=== PATIENT | female | born 1995 | race Caucasian/White ===

== ENCOUNTER 2016-11-21 21:46 | Emergency (ER) | payer BC, OTHER ==
[~2016-11-21] VITALS: Ht 165.1 cm; Wt 61.2 kg
[~2016-11-21 21:46] MED LIST: BIRTH CONTROL PO; CEPH-507 PO
[2016-11-21] MEDS ORDERED: RT-ALBUTEROL/IPRATROPIUM 3 ML (DUONEB) VIAL INH ONE (22:45)
[2016-11-21 22:57] LABS: BASOPHILS % (AUTO) 0 % (0-10); EOSINOPHILS # (AUTO) 0.2 10^3/uL (0.0-0.3); EOSINOPHILS % (AUTO) 2 % (0-10); LYMPHOCYTES % (AUTO) 39 % (12-44); MEAN CORPUSCULAR HEMOGLOBIN 29 PG (25-34); MEAN CORPUSCULAR HGB CONC 34 G/DL (32-36); MEAN CORPUSCULAR VOLUME 87 FL (80-99); MONOCYTES # (AUTO) 0.9 X 10^3 (0.0-1.0); MONOCYTES % (AUTO) 9 % (0-12); NEUTROPHILS # (AUTO) 5.2 X 10^3 (1.8-7.8); NEUTROPHILS % (AUTO) 50 % (42-75); PLATELET COUNT 287 10^3/uL (130-400); RED BLOOD COUNT 4.52 10^6/uL (4.35-5.85); RED CELL DISTRIBUTION WIDTH 12.6 % (10.0-14.5); WHITE BLOOD COUNT 10.3 10^3/uL (4.3-11.0)
[2016-11-21 23:26] LABS: ALANINE AMINOTRANSFERASE 11 U/L (0-55); ALBUMIN 4.2 G/DL (3.2-4.5); ANION GAP 11 MMOL/L (5-14); ASPARTATE AMINO TRANSFERASE 15 U/L (5-34); BILIRUBIN,TOTAL 0.4 MG/DL (0.1-1.0); BLOOD UREA NITROGEN 12 MG/DL (7-18); BUN/CREATININE RATIO 13; CALCIUM 9.1 MG/DL (8.5-10.1); CARBON DIOXIDE 21 MMOL/L (21-32); CHLORIDE 107 MMOL/L (98-107); CREATININE SERUM 0.89 MG/DL (0.60-1.30); GFR ESTIMATED > 60; GLUCOSE 103 MG/DL (70-105); MAGNESIUM 2.6 MG/DL (1.8-2.4); POTASSIUM 3.5 MMOL/L (3.6-5.0); SODIUM 139 MMOL/L (135-145); TOTAL PROTEIN 7.4 G/DL (6.4-8.2)
[2016-11-21] MEDS ORDERED: RX-ALBUTEROL INHALER (VENTOLIN HFA) 18 GM IH STA (23:45)
--- NOTE | 2016-11-21 23:45 | ED Chest Pain ---
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 Nursing Sepsis Screen: No Definite Risk Source: patient, other (friends) Exam Limitations: no limitations History of Present Illness Time seen by provider: 21:50 Initial Comments This 21-year-old young lady presents to the emergency room with complaints of chest pressure and shortness of air. She has associated feelings of weakness and tingling in her face and extremities. Symptoms started while she was lying in bed studying. She has final exams approaching. She has had an ER visit previously for similar symptoms. She thinks she may be having some difficulty with the weather change. She does admit to some problems with anxiety as well. She denies any cough or fever. She did take Buspar today which she believes helped her symptoms. She also has a history of asthma which is presently untreated. Last menstrual period was November 02 and she is not sexually active. She arrives with her cousin. Allergies and Home Medications Allergies Coded Allergies: latex (Verified Allergy, Mild, 10/25/15) No Known Drug Allergies (Unverified , 10/25/15) Uncoded Allergies: CATS (Allergy, Mild, 10/25/15) RED FOOD DYE (Allergy, Mild, 10/25/15) Home Medications Cephalexin 500 Mg Capsule, 500 MG PO TID, #21 Prescribed by: ESTRELLA CAMPOS on 10/25/151933 [ Control] , 1 TAB PO DAILY, (Reported) Review of Systems Constitutional: see HPI EENTM: No Symptoms Reported Respiratory: See HPI Cardiovascular: See HPI Gastrointestinal: No Symptoms Reported Genitourinary: No Symptoms Reported Musculoskeletal: no symptoms reported Skin: no symptoms reported Psychiatric/Neurological: See HPI Endocrine: No Symptoms Reported Hematologic/Lymphatic: No Symptoms Reported Past Qnhumna-Vofttr-Rmetdt Hx Patient Social History Alcohol Use: Denies Use Recreational Drug Use: No Smoking Status: Never a Smoker 2nd Hand Smoke Exposure: No Recent Foreign Travel: No Contact w/Someone Who Travel: No Recent Infectious Disease Expo: No Recent Hopitalizations: No Seasonal Allergies Seasonal Allergies: No Surgeries HX Surgeries: Yes (Laparoscopy, Umbilical abscess) Surgeries: Appendectomy Respiratory Hx Respiratory Disorders: Yes (trouble with breathing with weather changes) Respiratory Disorders: Asthma Cardiovascular Hx Cardiac Disorders: Yes ("enlarged right ventricle") Neurological Hx Neurological Disorders: No Reproductive System : No Hx Reproductive Disorders: No Female Reproductive Disorders: Ovarian Cyst Genitourinary Hx Genitourinary Disorders: No Gastrointestinal Hx Gastrointestinal Disorders: No Musculoskeletal Hx Musculoskeletal Disorders: No Endocrine Hx Endocrine Disorders: No HEENT HX ENT Disorders: No Cancer Hx Cancer: No Psychosocial Hx Psychiatric Problems: Yes Behavioral Health Disorders: Anxiety Integumentary HX Skin/Integumentary Disorder: No Blood Transfusions Hx Blood Disorders: No Family Medical History Significant Family History: Heart Disease Physical Exam Vital Signs Vital Sign - Last 12Hours 11/21/16 22:02 Temp 100.4 Pulse 90 Resp 22 B/P (MAP) 131/82 Pulse Ox 94 O2 Delivery Room Air Capillary Refill : Less Than 3 Seconds General Appearance: WD/WN, Anxious HEENT: PERRL/EOMI, Normal ENT Inspection Neck: Normal Inspection Respiratory: Chest Non Tender, Lungs Clear, Normal Breath Sounds, No Accessory Muscle Use, No Respiratory Distress, Other (mildly delayed expiratory phase without wheezing) Cardiovascular: Regular Rate, Rhythm, No Edema, No Murmur, Normal Peripheral Pulses Gastrointestinal: Normal Bowel Sounds, Non Tender, Soft Extremity: Normal Inspection Neurologic/Psychiatric: Alert, Oriented x3, No Motor/Sensory Deficits, marketing specialist II- XII Norm as Tested, Other (mildly anxious. Appears distracted) Skin: Normal Color, Warm/Dry Progress/Results/Core Measures Results/Orders Lab Results Laboratory Tests Test 11/21/16 22:50 Range/Units White Blood Count 10.3 4.3-11.0 10^3/uL Red Blood Count 4.52 4.35-5.85 10^6/uL Hemoglobin 13.3 11.5-16.0 G/DL Hematocrit 39 35-52 % Mean Corpuscular Volume 87 80-99 FL Mean Corpuscular Hemoglobin 29 25-34 PG Mean Corpuscular Hemoglobin Concent 34 32-36 G/DL Red Cell Distribution Width 12.6 10.0-14.5 % Platelet Count 287 130-400 10^3/uL Mean Platelet Volume 10.0 7.4-10.4 FL Neutrophils (%) (Auto) 50 42-75 % Lymphocytes (%) (Auto) 39 12-44 % Monocytes (%) (Auto) 9 0-12 % Eosinophils (%) (Auto) 2 0-10 % Basophils (%) (Auto) 0 0-10 % Neutrophils # (Auto) 5.2 1.8-7.8 X 10^3 Lymphocytes # (Auto) 4.0 1.0-4.0 X 10^3 Monocytes # (Auto) 0.9 0.0-1.0 X 10^3 Eosinophils # (Auto) 0.2 0.0-0.3 10^3/uL Basophils # (Auto) 0.0 0.0-0.1 10^3/uL Sodium Level 139 135-145 MMOL/L Potassium Level 3.5 L 3.6-5.0 MMOL/L Chloride Level 107 98-107 MMOL/L Carbon Dioxide Level 21 21-32 MMOL/L Anion Gap 11 5-14 MMOL/L Blood Urea Nitrogen 12 7-18 MG/DL Creatinine 0.89 0.60-1.30 MG/DL Estimat Glomerular Filtration Rate > 60 BUN/Creatinine Ratio 13 Glucose Level 103 70-105 MG/DL Calcium Level 9.1 8.5-10.1 MG/DL Magnesium Level 2.6 H 1.8-2.4 MG/DL Total Bilirubin 0.4 0.1-1.0 MG/DL Aspartate Amino Transf (AST/SGOT) 15 5-34 U/L Alanine Aminotransferase (ALT/SGPT) 11 0-55 U/L Alkaline Phosphatase 59 40-136 U/L Troponin I < 0.30 <0.30 NG/ML Total Protein 7.4 6.4-8.2 G/DL Albumin 4.2 3.2-4.5 G/DL My Orders Orders - KARISSA KRUEGER MD Urine Bedside (11/21/16 21:50) Chest Pa/Lat (2 View) (11/21/16 21:50) Cbc With Automated Diff (11/21/16 22:35) Magnesium (11/21/16 22:35) Ekg Tracing (11/21/16 22:35) Cardiac Profile 1 (11/21/16 22:35) Comprehensive Metabolic Panel (11/21/16 22:35) Monitor-Rhythm Ecg Trace Only (11/21/16 22:35) Albuterol/Ipra Inhalation Soln (Duoneb I (11/21/16 22:45) Svn Sm Volume Nebulizer Rt-Rfs (11/21/16 22:35) Rx-Albuterol Inhaler (Rx-Ventolin Hfa) (11/21/16 23:45) Rx-Albuterol Inhaler (Rx-Proair) (11/21/16 23:50) Medications Given in ED Vital Signs/I&O Vital Sign - Last 12Hours 11/21/16 11/22/16 22:02 00:09 Temp 100.4 99.8 Pulse 90 90 Resp 22 20 B/P (MAP) 131/82 Pulse Ox 94 94 O2 Delivery Room Air Blood Pressure Mean: 98 Progress Note : Progress Note Workup was unremarkable. Patient received a nebulizer treatment with improvement. A take-home inhaler was dispensed. Patient was advised to use her Buspar on a scheduled basis for best prophylactic effect. ECG Initial ECG Impression Date: November 22, 2016 Initial ECG Impression Time: 22:49 Initial ECG Rate: 85 Initial ECG Rhythm: Normal Sinus Comment Normal sinus rhythm with no ST elevation or depression. No abnormal intervals or axis deviation. Diagnostic Imaging Diagonstic Imaging: Xray Plain Films/CT/US/NM/MRI: chest Comments Chest x-ray viewed by me. Report pending. No acute abnormalities appreciated. Departure Impression Impression: Primary Impression: Anxiety Additional Impressions: Chest pressure Dyspnea Qualified Codes: R06.02 - Shortness of breath Disposition: 01 HOME, SELF-CARE Condition: Improved Departure-Patient Inst. Decision time for Depature: 23:44 Referrals: JEANNINE ZHENG DO (PCP) Primary Care Physician Patient Instructions: Anxiety, Adult (DC) Add. Discharge Instructions: Increase your BuSpar to 5 mg twice daily. Use your inhaler up to 4 puffs and a 4 hour period of time as needed for shortness of breath or wheezing. Follow-up with a primary care provider or the [facility] as soon as possible. Return to care if symptoms worsen. All discharge instructions reviewed with patient and/or family. Voiced understanding. KARISSA KRUEGER MD November 21, 2016 23:45
[2016-11-21] MEDS ORDERED: RX-ALBUTEROL INHALER (PROAIR) 8 GM IH ONE (23:50)
[2016-11-22 00:09] VITALS: BP 126/74
--- NOTE | 2016-11-22 07:44 | Diagnostic Imaging Report ---
INDICATION: Shortness of air with chest pain EXAMINATION: Two-view chest 11/21/2016. COMPARISON: 10/25/2015 FINDINGS: The cardiomediastinal silhouette is unremarkable. The pulmonary vasculature is within normal limits. The lungs and pleural spaces are clear. IMPRESSION: No evidence of an acute cardiopulmonary process. Dictated by: Dictated on workstation # [id number]
== END 2016-11-22 00:09 | disposition home or self-care (01) ==
LOC: EDUNIT# 21:46 → ER 21:49
DX: F41.9 Anxiety disorder, unspecified (principal); R07.89 Other chest pain; R06.00 Dyspnea, unspecified
CPT/HCPCS: 36415; 71020; 80053; 83735; 84484; 85025; 93005; 93041; 94640